=== PATIENT | female | born 1990 | race Caucasian/White ===

== ENCOUNTER 2017-08-19 17:22 | Outpatient (CLI) | END 2017-08-19 20:25 | disposition home or self-care (01) ==

== ENCOUNTER 2017-08-23 11:06 | Outpatient (CLI) | END 2017-08-23 15:20 | disposition home or self-care (01) ==

== ENCOUNTER 2017-08-25 09:57 | Outpatient (CLI) | END 2017-08-25 14:10 | disposition home or self-care (01) ==

== ENCOUNTER 2017-09-04 10:49 | Inpatient (IN) | END 2017-09-06 14:00 | disposition home or self-care (01) | DRG 775 ==